=== PATIENT | female | born 1995 | race Caucasian/White ===

== ENCOUNTER 2017-10-15 03:30 | Emergency (ER) | END 2017-10-15 06:06 | disposition home or self-care (01) ==

== ENCOUNTER 2017-10-20 15:14 | Emergency (ER) | END 2017-10-20 20:32 | disposition home or self-care (01) ==

== ENCOUNTER 2017-11-03 22:15 | Emergency (ER) | END 2017-11-04 00:43 | disposition home or self-care (01) ==